=== PATIENT | female | born 1990 | race Caucasian/White ===

== ENCOUNTER 2020-02-20 18:43 | Outpatient (CLI) | payer OTHER ==
--- NOTE | 2020-02-21 10:35 | Ultrasound Report ---
PROCEDURE: Pelvic w/Transvaginal INDICATIONS: IUD SURVEILLANCE TECHNIQUE: Real-time scanning was performed of the pelvic organs, with image documentation. Additional endovagi nal scanning was necessary due to incomplete visualization of the adnexal and endometrial structures by transabdominal scanning. COMPARISON: None. FINDINGS: Transabdominal scanning: Limited scanning through the kidneys shows no hydronephrosis. No pathologi c free abdominal or pelvic fluid. Endovaginal scanning: Uterus: Uterus is normal in size at 7.4 x 2.8 x 3.6 cm. . Echotexture is normal. The endometrium me asures 3.0 mm in combined thickness. Intrauterine device is centrally positioned within the uterus. Ovaries: Right ovary measures 2.6 x 1.3 x 1.3 cm with total volume of 2.2 cc. Left ovary measures 3. 5 x 2.0 x 3.4 cm with total volume of 12.4 cc. 1.2 x 0.8 x 1.0 cm oval cyst noted in the right ovary. 2.0 x 1.8 x 1.8 cm cyst noted in the left ovary. Less than 12 small follicles identified in the ovar ies bilaterally. IMPRESSION: 1. Intrauterine device is properly positioned. 2. Uterus is sonographically normal. 3. Small bilateral ovarian cysts. Reviewed by: Eleonora Ford MD, PhD on 02/21/2020 10:34 AM PST Approved by: Eleonora Ford MD, PhD on 02/21/2020 10:34 AM PST Station ID: [id number]
== END 2020-02-20 18:44 | disposition home or self-care (01) ==
LOC: DI 18:43
PROVIDERS: ATTEND Nurse Practitioner Obstetrics & Gynecology
DX: Z30.431 Encounter for routine checking of intrauterine contraceptive device (principal); N83.202 Unspecified ovarian cyst, left side; N83.201 Unspecified ovarian cyst, right side
CPT/HCPCS: 76830; 76856